=== PATIENT | female | born 1945 ===

== ENCOUNTER 2022-02-05 07:44 | Outpatient (CLI) | payer OTHER | END 2022-02-05 08:10 | disposition home or self-care (01) | LOC: RX STUDY 07:44 | PROVIDERS: ATTEND Colon & Rectal Surgery | DX: R10.9 Unspecified abdominal pain (principal) ==

== ENCOUNTER 2023-02-04 11:18 | Outpatient (CLI) | payer OTHER | END 2023-02-04 11:36 | disposition home or self-care (01) | LOC: SONOGRAMA 11:18 | PROVIDERS: ATTEND General Practice | DX: R10.32 Left lower quadrant pain (principal); N39.0 Urinary tract infection, site not specified; R10.9 Unspecified abdominal pain; R42 Dizziness and giddiness; R51.9 Headache, unspecified ==

== ENCOUNTER 2023-04-16 21:44 | Emergency (ER) | payer OTHER ==
[~2023-04-16] VITALS: Ht 157.5 cm; Wt 77.1 kg
[2023-04-16] MEDS ORDERED: NORVASC5 MG PO (21:55)
[2023-04-16] MEDS ORDERED: ECOTRIN81 MG PO (21:56)
[2023-04-16] MEDS ORDERED: FAMOTIDINE/PF 20 MG in 0.9 % SODIUM CHLORIDE 8 ML IV PUSH STA (22:24)
[2023-04-16] MEDS ORDERED: KETOROLAC TROMETHAMINE 30 MG VIAL IV ONE (22:30)
[2023-04-16] MEDS ORDERED: 0.9 % SODIUM CHLORIDE 1,000 ML IV SCH (22:30)
[2023-04-16] MEDS ORDERED: ONDANSETRON HCL 2 MG/ML VIAL IV ONE (22:30)
[2023-04-16 23:13] LABS: HEMATOCRIT 37.7 % (36.0-45.00); HEMOGLOBIN 12.7 g/dL (12.0-15.00); MEAN CORPUSCULAR HEMOGLOBIN 27.9 pg (27.00-32.0); MEAN CORPUSCULAR HGB CONC 33.6 g/dl (32.0-36.0); PLATELET COUNT 205 K/uL (150-450); RED BLOOD COUNT 4.54 M/uL (4.00-6.00); RED CELL DISTRIBUTION WIDTH 13.2 % (11.5-14.5)
[2023-04-16 23:52] LABS: ALBUMIN 3.3 gm/dL (3.4-5.0); BILIRUBIN TOTAL 0.21 mg/dL (0.3-1.2); CALCIUM 9.5 mg/dL (8.5-10.1); CREATININE SERUM 0.76 mg/dL (0.55-1.02); GFR 73.79; GLOBULINA 4.3 G/DL (2.4-3.5); POTASSIUM 4.28 mEq/L (3.5-5.1); TOTAL PROTEIN 7.6 gm/dL (6.4-8.2)
[2023-04-17 00:11] LABS: PH,URINE 6.5 (5.0-8.0); URINE APPEARANCE Clear; URINE BILIRRUBIN Negative (NEGATIVE); URINE BLOOD Negative; URINE COLOR Yellow; URINE GLUCOSE Negative (NEGATIVE); URINE LEUKOCYTE Trace; URINE NITRATE Negative; URINE PROTEIN Negative (NEGATIVE); URINE UROBILINOGEN 0.2 E.U./dl
[2023-04-17 00:13] LABS: URINE BACTERIA 23.8 uL (0.0-1933); URINE EPITHELIAL CELLS 12.9 uL (0.0-38.8); URINE WBC 8.4 uL (0.0-23.2)
[2023-04-17 00:14] LABS: URINE RBC 1.1 uL (0.0-20.8)
[2023-04-17] MEDS ORDERED: MEPERIDINE HCL/PF 25 MG/ML VIAL IM STA (04:02)
[2023-04-17] MEDS ORDERED: PROMETHAZINE HCL 25 MG/ML AMPUL IM STA (04:03)
[2023-04-17] MEDS ORDERED: HYOSCYAMINE SULFATE 0.125 MG TAB.SUBL SL ONE (04:15)
== END 2023-04-17 07:24 | disposition home or self-care (01) ==
LOC: ER 21:44 → EMR PED 21:44 → ER 22:21
PROVIDERS: General Practice
DX: K57.32 Diverticulitis of large intestine without perforation or abscess without bleeding (principal); K59.01 Slow transit constipation; R10.32 Left lower quadrant pain; Z88.6 Allergy status to analgesic agent; Z91.041 Radiographic dye allergy status; I10 Essential (primary) hypertension
CPT/HCPCS: 74176; 96365; 96366; 96372; 99284; J1885; J2250; J2405; J3490; J7030